=== PATIENT | female | born 1985 | race Caucasian/White ===

== ENCOUNTER 2016-11-13 10:57 | Day surgery (SDC) | payer OTHER ==
[2016-11-13] MEDS ORDERED: Lactated Ringer's 1,000 ML IV SCH (12:00)
[2016-11-13 12:56] LABS: #Lymphocytes 1.4 thou/uL (1.20-3.40); #Monocytes 0.5 thou/uL (0.11-0.59); #Neutrophils 7.1 thou/uL (1.40-6.50); %Basophils 0.2 % (0.0-1.0); %Eosinophils 0.4 % (0.0-10.0); %Lymphocytes 15.8 % (21.0-51.0); %Monocytes 5.1 % (0.0-10.0); Hematocrit 32.9 % (36.0-47.0); Mean Platelet Volume 8.2 fL (7.4-10.4); White Blood Cell (WBC) Count 9.1 thou/uL (4.8-10.8)
[2016-11-13 13:15] LABS: Bilirubin Negative (Negative); Blood, Urine Negative (Negative); Glucose, Urine (Dipstick) Negative (Negative); Ketone, Urine Negative (Negative); Nitrite Negative (Negative); Protein, Urine (Dipstick) 100 mg/dL (Neg-Trace); Urobilinogen 0.2 mg/dL (0.2-1.0)
[2016-11-13 13:16] LABS: Amnisure Test No Membranes Rupture (No Rupture)
[2016-11-13 13:21] LABS: Bacteria/HPF 1+ HPF (None Seen)
[2016-11-13 13:26] LABS: ALT (SGPT) 7 U/L (8-55); AST (SGOT) 10 U/L (5-34); Alkaline Phosphatase 106 U/L (40-150); Anion Gap 13 mmol/L (10-20); BUN (Urea Nitrogen) 6 mg/dL (7.0-18.7); Bilirubin, Total 0.4 mg/dL (0.2-1.2); Calc. Creatinine Clearance 0 mL/min (70-130); Calcium 9.3 mg/dL (7.8-10.44); Carbon Dioxide 22 mmol/L (22-29); Chloride 106 mmol/L (98-107); Estimated GFR-MDRD Greater than 90; Globulin 2.8 g/dL (2.4-3.5); Protein, Total 6.1 g/dL (6.0-8.3); Uric Acid 5.3 mg/dL (2.6-6.0)
[2016-11-13 13:32] LABS: RBC/HPF 0-3 HPF (0-3)
[2016-11-13 13:33] LABS: Hyaline Casts/LPF 0-3 HYALINE CAST LPF (0-3 Hyaline)
[2016-11-13] MEDS ORDERED: Ondansetron HCl/PF 4 MG/2 ML Vial ONE (13:34)
[2016-11-13] MEDS ORDERED: Ondansetron HCl/PF 4 MG/2 ML Vial IVP SCH (13:45)
--- NOTE | 2016-11-13 13:47 | ULT ---
BIOPHYSICAL PROFILE: INDICATIONS: Preeclampsia. COMPARISON: 10/29/2016 FINDINGS: There is a single live intrauterine gestation in the vertex presentation. The placenta is posterior in location without evidence of previa. CORINE measures 16 cm. heart rate measures 150 beats p er minute. The fetus received 2/2 for tone, 2/2 for breathing, 2/2 for movement, and 2/2 for the amniotic fluid level. The biophysical profile is 8/8. IMPRESSION: Biophysical profile 8/8. POS: JAZZMINE
[2016-11-13 17:09] VITALS: BMI 34.6
[2016-11-13] MEDS: Lactated Ringer's 1,000 ML IV SCH (17:37)
[2016-11-13] MEDS ORDERED: FLU VACC QS2017-18 36 mo. & older 0.5 ML SYRINGE IM ONE (18:00)
--- NOTE | 2016-11-13 21:06 | PDOC.LDPN ---
Labor & Delivery Progress Note - Subjective Subjective: comfortable, no concerns - Objective Vital signs reviewed and normal: yes General: NAD Uterine fundus: non tender Dilation: 4 Effacement: 50% Station: -2 FHT: category 1, variability present, absent or minimal variables Koppel contractions every: irregular. at times q3-5 min - Assessment (1) Pre-eclampsia Code(s): O14.90 - UNSPECIFIED PRE-ECLAMPSIA, UNSPECIFIED TRIMESTER Current Visit: Yes Status: Acute Qualifiers: Trimester: third trimester Qualified Code(s): O14.93 - Unspecified pre- eclampsia, third trimester -: Pt does not currently have severe symptoms, however uric acid is elevated. Continue to monitor over night and recheck cmp/cbc in am. Monitor BP over night.
[2016-11-14] MEDS: Ondansetron HCl/PF 4 MG/2 ML Vial IVP PRN ×2 (02:58→09:21)
[2016-11-14] MEDS: Lactated Ringer's 1,000 ML IV SCH (03:00)
[2016-11-14 05:33] LABS: #Eosinphils 0.1 thou/uL (0.0-0.7); #Lymphocytes 1.7 thou/uL (1.20-3.40); #Monocytes 0.7 thou/uL (0.11-0.59); #Neutrophils 6.5 thou/uL (1.40-6.50); %Basophils 0.1 % (0.0-1.0); %Eosinophils 1.2 % (0.0-10.0); %Lymphocytes 19.1 % (21.0-51.0); %Monocytes 7.4 % (0.0-10.0); Hematocrit 29.2 % (36.0-47.0); Mean Platelet Volume 8.1 fL (7.4-10.4); Red Blood Cell (RBC) Count 3.24 mill/uL (4.20-5.40)
[2016-11-14 05:53] LABS: ALT (SGPT) 7 U/L (8-55); AST (SGOT) 13 U/L (5-34); Alkaline Phosphatase 86 U/L (40-150); Anion Gap 12 mmol/L (10-20); BUN (Urea Nitrogen) 7 mg/dL (7.0-18.7); Bilirubin, Total 0.4 mg/dL (0.2-1.2); Calc. Creatinine Clearance 0 mL/min (70-130); Calcium 8.9 mg/dL (7.8-10.44); Carbon Dioxide 21 mmol/L (22-29); Chloride 105 mmol/L (98-107); Estimated GFR-MDRD Greater than 90; Globulin 2.8 g/dL (2.4-3.5); Protein, Total 5.5 g/dL (6.0-8.3)
[2016-11-14] MEDS ORDERED: Acetaminophen 325 MG TAB PO SCH (08:00)
--- NOTE | 2016-11-14 09:13 | PDOC.LDPN ---
Labor & Delivery Progress Note - Subjective Subjective: comfortable - Objective Vital signs reviewed and normal: yes General: NAD Uterine fundus: non tender SVE: @[address] Milian and Dr. Le Dilation: 4 Effacement: 50% Station: -3 FHT: category 1, variability present - Assessment (1) Pre-eclampsia Code(s): O14.90 - UNSPECIFIED PRE-ECLAMPSIA, UNSPECIFIED TRIMESTER Current Visit: Yes Status: Acute Qualifiers: Trimester: third trimester Qualified Code(s): O14.93 - Unspecified pre- eclampsia, third trimester Comment: Pre-eclampsia without severe features diagnosed by SBP >140 and Protein /creatinine ratio > 0.3 LFT's, creatinine, platelets WNL -will get 24 hour protein -will continue to monitor BP's Still having nausea and vomiting, was able to tolerate PO overnight, but not this AM. Zofran prn nausea. -Scheduled for induction at 37 WGA. Plan: continue plan of care <Do Milian - Last Filed: 11/14/16 09:20> Attending Addendum - Attending Addendum I personally evaluated the patient and discussed the management with Dr. Milian I agree with the History, Examination, Assessment and Plan documented above with any addition or exceptions noted below- Patient with some nausea this morning but wants to try and eat. Had some ctx last night and had some cervical change but no further change and ctx stopped. Afebrile BP overnight 120s/80s. A /P: Pre-eclampsia without severe features- BP stabilized; continue 24 hour urine. 2) labor- no further cervical change; continue to monitor. Possible d/c later today. <Sumaya Franco - Last Filed: 11/14/16 09:35>
[2016-11-14] MEDS ORDERED: Metoclopramide HCl 10 MG/2 ML VIAL IVP PRN (10:47)
[2016-11-14] MEDS ORDERED: Acetaminophen 500 MG TAB PO PRN (14:13)
[2016-11-14 16:12] LABS: Collection Duration 24 hrs
[2016-11-14 17:23] LABS: Protein - 24 Hr 392 mg/24 hr (Less than 300); Protein, Urine 27 mg/dL (1-14)
[2016-11-14 17:28] VITALS: BP 135/81; TEMP 98.2
--- NOTE | 2016-11-15 07:51 | DIS-2 ---
DATE OF ADMISSION: 11/13/2016 DATE OF DISCHARGE: 11/14/2016 RESIDENT: Do Milian MD ADMITTING ATTENDING: Sumaya Franco MD DISCHARGE ATTENDING: Sumaya Franco MD CONSULTS: None. PROCEDURES: None. PRIMARY DIAGNOSES: 1. Preeclampsia without severe features. 2. Intractable nausea, vomiting in . 3. Group B streptococcus positive. DISCHARGE MEDICATIONS: 1. Zofran 4 mg p.o. every 6 hours p.r.n. 2. vitamins 1 tablet p.o. daily. DISCONTINUED MEDICATIONS: None. HISTORY OF PRESENT ILLNESS AND HOSPITAL COURSE: This is a 31-year-old G4, P3 at 36.0 weeks gestatio nal age, who presented to the clinic on 11/13/2016, complaining of headache, nausea, vomiting, and r eported that at home, she checked her blood pressures, they were systolic in the 140s. She was sent over to the hospital and admitted here for observation. We checked her blood pressure, it ranged a round 140s/80s and then dropped down to the 120s to 110s/70s. Her platelets were normal. Her creat inine and LFTs were normal. We checked a urine protein to creatinine ratio of 0.5 and she had a uri c acid of 5.3. She also reported that she felt like her panties were wetter than they normally were . She was not sure if she had loss of fluid or if it was urine. We did an AmniSure and it was nega tive. We monitored her for several hours and monitored the heart tones, were category 1, and her blood pressures continued to range from 120s to 140s systolic. We diagnosed her with preeclamps ia without severe features. She had known proteinuria earlier in her , but without the rossana vated blood pressures. She also at this time had significant nausea and vomiting and having difficu lty keeping her food down. We gave her Zofran and this helped. She also received a bolus of lactat ed Ringer's and then some maintenance fluids, and after about 12 hours, she was able to tolerate p.o . and her headache improved after Tylenol. We scheduled her for induction on , 11/21/2016. Her 24-hour urine protein, which is 392. DISPOSITION: Stable. DISCHARGE INSTRUCTIONS: 1. Location: Home. 2. Diet: Regular. 3. Activity: As tolerated. 4. Follow up with Dr. Frazier within 3 to 4 days.
== END 2016-11-14 18:01 | disposition home or self-care (01) ==
LOC: L&D/OP 10:57 → L&D 18:14 → UNDOADMOB 18:14 → 3SE 11-14 10:38 → L&D 11-14 10:38 → UNDODISOB 11-14 18:01 → L&D/OP 11-14 18:01
PROVIDERS: ATTEND Family Medicine
DX: O14.93 Unspecified pre-eclampsia, third trimester (principal); O98.813 Other maternal infectious and parasitic diseases complicating pregnancy, third trimester; B95.1 Streptococcus, group B, as the cause of diseases classified elsewhere; K21.9 Gastro-esophageal reflux disease without esophagitis; Z3A.35 35 weeks gestation of pregnancy; Z79.899 Other long term (current) drug therapy; Z91.048 Other nonmedicinal substance allergy status; Z87.891 Personal history of nicotine dependence; Z87.440 Personal history of urinary (tract) infections
CPT/HCPCS: 36415; 59025; 76819; 80053; 81001; 82570; 84112; 84156; 84550; 85025; 86780; 87077; 87086; 87389; J2405

== ENCOUNTER 2016-11-18 13:40 | Day surgery (SDC) | payer OTHER ==
[2016-11-18 14:27] VITALS: BMI 33.7
[2016-11-18] MEDS ORDERED: Lactated Ringer's 1,000 ML IV SCH (16:00)
[2016-11-18 16:50] LABS: #Basophils 0.1 thou/uL (0.0-0.2); #Lymphocytes 1.4 thou/uL (1.20-3.40); #Monocytes 0.5 thou/uL (0.11-0.59); #Neutrophils 7.2 thou/uL (1.40-6.50); %Basophils 0.7 % (0.0-1.0); %Eosinophils 0.4 % (0.0-10.0); %Lymphocytes 15.2 % (21.0-51.0); %Monocytes 5.7 % (0.0-10.0); Hematocrit 34.2 % (36.0-47.0); Mean Platelet Volume 8.3 fL (7.4-10.4); Red Blood Cell (RBC) Count 3.83 mill/uL (4.20-5.40); White Blood Cell (WBC) Count 9.2 thou/uL (4.8-10.8)
--- NOTE | 2016-11-18 17:03 | PDOC.LDHP ---
Labor and Delivery H&P Chief complaint: abdominal pain, other (scotomas) HPI: Complaining of RUQ pain and scotomas, no increase over baseline symptoms. Also notes increased vaginal discharge. Current gestational age (weeks): 36 Grav: 4 Para: 3 OB History Details: Preeclampsia this . Current complications: preeclampsia without severe features Abnormal US findings: No Current medications: pre-amanda vitamins Previous surgical history: none Allergies/Adverse Reactions: Allergies Allergy/AdvReac Type Severity Reaction Status Date / Time adhesive Allergy Mild Rash Verified 11/18/16 14:25 Social history: none - Physical Exam Vital signs reviewed and normal: yes (intial BP) General: NAD Heart: RRR Lungs: nonlabored breathing Abdomen: other (mild diffuse abdominal pain on palpation, no guarding or rebound ) Extremeties: trace edema FHT: category 1 - Vaginal Exam cm dilated: 3 Effacement: 75% Station: -2 - OB Labs RH: negative HIV: negative RPR: negative HEPSAg: negative 1 hour GCT: negative GBS: positive Urine drug screen: negative Additional Labs: uric acid and CMP pending - Assessment known preeclampsia, currently reevaluating possibility of severe features. If nothing new noted on lab workup or BPP, will continue plan for induction on at 37 weeks. If concern for severe features, will give steroid shot and induce tonight.
[2016-11-18 17:05] LABS: Bilirubin Negative (Negative); Blood, Urine Negative (Negative); Glucose, Urine (Dipstick) Negative (Negative); Ketone, Urine Negative (Negative); Nitrite Negative (Negative); Protein, Urine (Dipstick) Negative (Neg-Trace); Urobilinogen 0.2 mg/dL (0.2-1.0)
[2016-11-18 17:21] LABS: ALT (SGPT) 9 U/L (8-55); AST (SGOT) 13 U/L (5-34); Alkaline Phosphatase 113 U/L (40-150); Anion Gap 14 mmol/L (10-20); BUN (Urea Nitrogen) 6 mg/dL (7.0-18.7); Bilirubin, Total 0.5 mg/dL (0.2-1.2); Calc. Creatinine Clearance 238 mL/min (70-130); Calcium 9.5 mg/dL (7.8-10.44); Carbon Dioxide 22 mmol/L (22-29); Chloride 104 mmol/L (98-107); Estimated GFR-MDRD Greater than 90; Globulin 2.9 g/dL (2.4-3.5); Protein, Total 6.2 g/dL (6.0-8.3)
[2016-11-18 17:42] LABS: Amnisure Test No Membranes Rupture (No Rupture)
[2016-11-18 18:18] VITALS: BP 141/87; TEMP 98.2
--- NOTE | 2016-11-18 18:54 | ULT ---
BIOPHYSICAL PROFILE: History: Preclampsia. FINDINGS: There is a single live intrauterine gestation in vertex presentation. Placenta is posterior in locat ion without evidence of previa. CORINE is noted at 15.3 cm. The fetus is 2/2 for tone, 2/2 for fe moustapha breathing, 2/2 for movements and 2/2 for amniotic fluid level. Cardiac activity is documen devan at 131 beats/minute. IMPRESSION: Biophysical profile of 09/17. POS: BH
--- NOTE | 2016-11-18 19:39 | PDOC.EVN ---
Event Note - Event Note Event Note: Patient labs wnl. Patient with known pre-eclampsia this , although today does not meet criteria for preeclampsia with negative protienuria. Will d /c home with IOL scheduled for 11/22/16.
[2016-11-18] MEDS ORDERED: FLU VACC QS2017-18 36 mo. & older 0.5 ML SYRINGE IM ONE (21:00)
== END 2016-11-18 20:27 | disposition home or self-care (01) ==
LOC: L&D/OP 13:40
PROVIDERS: ATTEND Family Medicine
DX: O99.89 Other specified diseases and conditions complicating pregnancy, childbirth and the puerperium (principal); R10.11 Right upper quadrant pain; N89.8 Other specified noninflammatory disorders of vagina; O14.93 Unspecified pre-eclampsia, third trimester; Z3A.36 36 weeks gestation of pregnancy; Z79.899 Other long term (current) drug therapy; Z91.048 Other nonmedicinal substance allergy status; Z87.891 Personal history of nicotine dependence
CPT/HCPCS: 76819; 80053; 81003; 82570; 84112; 84156; 85025; 87480; 87510; 87660

== ENCOUNTER 2016-11-22 05:12 | Inpatient (IN) | payer OTHER ==
[2016-11-22 06:20] VITALS: BMI 35.6
[2016-11-22] MEDS ORDERED: Sodium Chloride 0.9% 100 ML ONE (07:01)
[2016-11-22] MEDS ORDERED: Penicillin G Potassium 5 MILL.UNITS VIAL ONE (07:01)
[2016-11-22] MEDS ORDERED: Ibuprofen 800 MG TAB PO PRN (07:41)
[2016-11-22] MEDS ORDERED: LR / Pitocin 40 units/1000 ml 1,000 ML IV PRN (07:41)
[2016-11-22] MEDS ORDERED: Promethazine HCl 25 MG/ML VIAL IM PRN ×2 (07:41→12:12)
[2016-11-22] MEDS ORDERED: Lidocaine 1% (PF) 30 ML VIAL SC PRN (07:41)
[2016-11-22] MEDS ORDERED: Docusate 100 MG CAP PO PRN (07:41)
[2016-11-22] MEDS ORDERED: Ondansetron HCl/PF 4 MG/2 ML Vial IVP PRN ×3 (07:41→18:01)
[2016-11-22] MEDS ORDERED: Penicillin G Potassium 5 MILL.UNITS in Sodium Chloride 0.9% 100 ML IVPB SCH (07:45)
[2016-11-22] MEDS ORDERED: LR 500 ML/Oxytocin 10 units 500 ML IV SCH (08:15)
[2016-11-22 08:17] LABS: Hematocrit 32.8 % (36.0-47.0); Mean Platelet Volume 8.7 fL (7.4-10.4); Red Blood Cell (RBC) Count 3.68 mill/uL (4.20-5.40); White Blood Cell (WBC) Count 9.1 thou/uL (4.8-10.8)
[2016-11-22] MEDS: Lactated Ringer's 1,000 ML IV SCH ×2 (08:34→10:54)
[2016-11-22] MEDS ORDERED: Fentanyl 4 mcg/Marc 0.1% Cadd 100 ML ONE (10:33)
[2016-11-22 10:56] LABS: ALT (SGPT) 10 U/L (8-55); AST (SGOT) 10 U/L (5-34); Alkaline Phosphatase 112 U/L (40-150); Anion Gap 15 mmol/L (10-20); BUN (Urea Nitrogen) 9 mg/dL (7.0-18.7); Bilirubin, Total 0.6 mg/dL (0.2-1.2); Calc. Creatinine Clearance 225 mL/min (70-130); Calcium 9.2 mg/dL (7.8-10.44); Carbon Dioxide 22 mmol/L (22-29); Chloride 105 mmol/L (98-107); Estimated GFR-MDRD Greater than 90; Globulin 3.2 g/dL (2.4-3.5); Protein, Total 6.5 g/dL (6.0-8.3)
[2016-11-22] MEDS: Penicillin G 2.5 MILL.units 2.5 MILL.UNITS in Premix Bag 1 BAG IVPB SCH ×2 (10:56→15:26)
[2016-11-22] MEDS ORDERED: Eucerin (Mineral Oil/Petrolatum,White) 30 gm Jar TOP PRN (12:12)
[2016-11-22] MEDS ORDERED: Acetaminophen 325 MG TAB PO PRN ×2 (12:12→18:40)
[2016-11-22] MEDS ORDERED: diphenhydrAMINE HCl 50 MG/ML 1 ML VIAL IVP PRN (12:12)
[2016-11-22] MEDS ORDERED: Lactated Ringer's 500 ML IV PRN (12:12)
[2016-11-22] MEDS ORDERED: Naloxone HCl 0.4 mg/ml Vial IVP PRN ×2 (12:12)
[2016-11-22] MEDS ORDERED: ePHEDrine/0.9% NaCl/PF SYRINGE 50 mg/10 ml SLOW IVP PRN (12:12)
[2016-11-22] MEDS ORDERED: Communication Order-Pharmacy FS SCH (12:15)
[2016-11-22] MEDS ORDERED: Fentanyl 4mcg/Marcaine 0.1% Cassette 100 ML EPIDURAL SCH (12:15)
--- NOTE | 2016-11-22 12:52 | PDOC.EVN ---
Event Note - Event Note Event Note: S: Patient comfortable with epidural in place. No complaints at this time. O: VS: BP 133/79, HR 120, Temp 98/4, R 16 SBP average 120's. Gen: Afebrile, AOx4. PE: unchanged. SVE by Dr. Frazier /+1 FHT's 140's, + Accels, no decels, mod variability. Bruce strip CTX: Q3min. AROM @ 12:28. Clear fluid. Med: Pit @ 8, Epidural in place. A/P: 1) TIUP - 31 yo @ 37w0d. Continue routine L&D care. 2) GBS positive - s/p PCN x2 3) Pre-eclampsia - CMP WNL. BP controlled.
--- NOTE | 2016-11-22 16:22 | PDOC.OPDEL ---
OB Operative/Delivery Note Delivery Dr/Surgeon: Freddie Pre-Delivery Diagnosis: medically indicated induction (pitocin induction at 37 weeks for preeclampsia without severe features) Procedure/Post Delivery Dx: spontaneous vaginal delivery Weeks gestation: 37 Anesthesia: epidural - Additional Findings/Plan Placenta delivered: spontaneous Repaired Obstetrical Laceration: none Estimated blood loss: 200 mL
[2016-11-22] MEDS ORDERED: LR / Pitocin 40 units/1000 ml 1,000 ML IV SCH (18:01)
[2016-11-22] MEDS ORDERED: Milk Of Magnesia 30 ML UDCUP PO PRN (18:01)
[2016-11-22] MEDS ORDERED: Bisacodyl 10 MG SUPP PR PRN (18:01)
[2016-11-22] MEDS ORDERED: Lanolin Ointment 7 GM TUBE TOP PRN (18:01)
[2016-11-22] MEDS ORDERED: diphenhydrAMINE HCl 25 MG CAP PO PRN (18:01)
[2016-11-22] MEDS ORDERED: Benzocaine/Menthol 20-0.5% 60 ML CAN TOP PRN (18:01)
[2016-11-22] MEDS ORDERED: Ferrous Sulfate 325 MG TAB PO SCH (18:15)
[2016-11-22] MEDS ORDERED: Adacel (T-DAP) 0.5 ML VIAL IM ONE (18:30)
[2016-11-22] MEDS: Ibuprofen 800 MG TAB PO SCH (18:51)
[2016-11-22] MEDS ORDERED: Bupivacaine 0.25% HCL 30 ML VIAL ONE (19:42)
[2016-11-22] MEDS: HYDROcodone/Acetaminophen 5/325 mg Tablet PO PRN ×2 (19:50→23:29)
[2016-11-22] MEDS: Docusate (Surfak) 240 MG CAP PO SCH (19:50)
[2016-11-22] MEDS ORDERED: FLU VACC QS2017-18 36 mo. & older 0.5 ML SYRINGE IM ONE (21:00)
[2016-11-23 04:28] LABS: Hematocrit 30.6 % (36.0-47.0); Mean Platelet Volume 8.4 fL (7.4-10.4); Red Blood Cell (RBC) Count 3.41 mill/uL (4.20-5.40); White Blood Cell (WBC) Count 10.5 thou/uL (4.8-10.8)
[2016-11-23] MEDS: Ibuprofen 800 MG TAB PO SCH ×3 (06:23→21:19)
[2016-11-23] MEDS: HYDROcodone/Acetaminophen 5/325 mg Tablet PO PRN ×4 (08:27→21:18)
[2016-11-23] MEDS: Prenatal Vitamin 1 TAB PO SCH (08:27)
[2016-11-23] MEDS: Ferrous Sulfate 325 MG TAB PO SCH ×2 (08:28→16:44)
[2016-11-23] MEDS: Docusate (Surfak) 240 MG CAP PO SCH ×2 (08:28→21:18)
--- NOTE | 2016-11-23 09:05 | PDOC.PP ---
Post Progress Note Post Day #: 1 PO intake tolerated: yes Flatus: yes Ambulation: yes Vital Signs (12 hours) Temp Pulse Resp BP Pulse Ox 11/23/16 07:35 97.9 F 81 20 11/23/16 07:30 98 F 90 20 134/85 97 11/23/16 03:50 97.9 F 81 20 11/23/16 00:20 97.9 F 81 20 11/22/16 23:35 98.6 F 80 18 150/86 H Weight Weight 94.347 kg - Physical Examination General: NAD Cardiovascular: no m/r/g, RRR Respiratory: clear to ausculation bilateral Abdominal: + bowel sounds, no distention, appropriately TTP Skin: no rash Neurological: no gross focal deficits Psychiatric: normal affect Result Diagrams: 11/23/16 04:10 11/22/16 06:45 Additional Labs: Post Labs Hep Bs Antigen Non-Reactive S/CO (NonReactive) 11/22/16 06:45 (1) Intrauterine Code(s): Z34.90 - ENCNTR FOR SUPRVSN OF NORMAL , UNSP, UNSP TRIMESTER Status: Acute (2) Pre-eclampsia Code(s): O14.90 - UNSPECIFIED PRE-ECLAMPSIA, UNSPECIFIED TRIMESTER Status: Acute - Assessment/Plan continue to monitor pressures, pressures thus far remain less than 160/110 no ruq pain labs wnl no scotoma no headache possible discharge today w/ close op f/u pending maintained bp <160/110 pain adequately controlled at this time urinating and passing flatus <Mark Grajeda - Last Filed: 11/23/16 09:03> Vital Signs (12 hours) Temp Pulse Resp BP Pulse Ox 11/23/16 07:35 97.9 F 81 20 11/23/16 07:30 98 F 90 20 134/85 97 11/23/16 03:50 97.9 F 81 20 11/23/16 00:20 97.9 F 81 20 11/22/16 23:35 98.6 F 80 18 150/86 H Weight Weight 94.347 kg Result Diagrams: 11/23/16 04:10 11/22/16 06:45 Additional Labs: Post Labs Hep Bs Antigen Non-Reactive S/CO (NonReactive) 11/22/16 06:45 <Michaela Frazier - Last Filed: 11/23/16 11:20> Attending Addendum - Attending Addendum I personally evaluated the patient and discussed the management with Dr. Grajeda on 11/23/16. I agree with the History, Examination, Assessment and Plan documented above with any addition or exceptions noted below. Doing well, minimal pain and lochia. BP elevated overnight with history of preeclampsia without severe features this . No need for Mag at this time. Monitor overnight, if remains stable overnight will discharge home tomorrow. <Michaela Frazier - Last Filed: 11/23/16 11:20>
[2016-11-24] MEDS: HYDROcodone/Acetaminophen 5/325 mg Tablet PO PRN ×2 (06:01→09:35)
[2016-11-24] MEDS: Ibuprofen 800 MG TAB PO SCH (06:01)
[2016-11-24 08:09] VITALS: BP 123/62; TEMP 98.6
--- NOTE | 2016-11-24 08:11 | PDOC.PP ---
Post Progress Note Post Day #: 2 PO intake tolerated: yes Flatus: yes Ambulation: yes Weight Weight 94.347 kg - Physical Examination General: NAD Cardiovascular: no m/r/g, RRR Respiratory: clear to ausculation bilateral Abdominal: + bowel sounds, lochia, no distention, appropriately TTP Fundus firm & at: umbilicus Extremities: negative homans (B) Neurological: no gross focal deficits Psychiatric: normal affect Result Diagrams: 11/23/16 04:10 11/22/16 06:45 Additional Labs: Post Labs Hep Bs Antigen Non-Reactive S/CO (NonReactive) 11/22/16 06:45 (1) Intrauterine Code(s): Z34.90 - ENCNTR FOR SUPRVSN OF NORMAL , UNSP, UNSP TRIMESTER Status: Acute (2) Pre-eclampsia Code(s): O14.90 - UNSPECIFIED PRE-ECLAMPSIA, UNSPECIFIED TRIMESTER Status: Acute - Assessment/Plan pressures remained stable throughout the day. scant lochia mild cramping with breast feeding but pain well controlled otherwise tolerating po, ambulating, small BM, urinating w/o problems d/c home today with op f/u with PCP <Mark Grajeda - Last Filed: 11/24/16 08:08> Vital Signs (12 hours) Temp Pulse Resp BP 11/24/16 08:00 98.6 F 68 20 123/62 Weight Weight 94.347 kg Result Diagrams: 11/23/16 04:10 11/22/16 06:45 Additional Labs: Post Labs Hep Bs Antigen Non-Reactive S/CO (NonReactive) 11/22/16 06:45 <Michaela Frazier - Last Filed: 11/24/16 09:43> Attending Addendum - Attending Addendum I personally evaluated the patient and discussed the management with Dr. Grajeda on 11/24/16. I agree with the History, Examination, Assessment and Plan documented above with any addition or exceptions noted below. Doing well, BPs controlled. Discharge home today. <Michaela Frazier - Last Filed: 11/24/16 09:43>
[2016-11-24] MEDS: Prenatal Vitamin 1 TAB PO SCH (09:34)
[2016-11-24] MEDS: Docusate (Surfak) 240 MG CAP PO SCH (09:34)
[2016-11-24] MEDS: Ferrous Sulfate 325 MG TAB PO SCH (09:34)
== END 2016-11-24 12:46 | disposition home or self-care (01) | DRG 775 ==
LOC: L&D 05:12 → 3SE 17:57
PROVIDERS: ADMIT Family Medicine; ATTEND Family Medicine
PROC: 10E0XZZ Delivery of Products of Conception, External Approach (ICD-10-PCS; principal; 2016-11-22)
PROC: 3E0P3VZ Introduction of Hormone into Female Reproductive, Percutaneous Approach (ICD-10-PCS; 2016-11-22)
PROC: 10907ZC Drainage of Amniotic Fluid, Therapeutic from Products of Conception, Via Natural or Artificial Opening (ICD-10-PCS; 2016-11-22)
DX: O14.94 Unspecified pre-eclampsia, complicating childbirth (principal); O99.824 Streptococcus B carrier state complicating childbirth; Z3A.37 37 weeks gestation of pregnancy; Z37.0 Single live birth
CPT/HCPCS: 36415; 80053; 85027; 86780; 87340; 87389; J2001; J2405; J2540; J7050; J7120; S0020

== ENCOUNTER 2019-03-17 16:17 | Emergency (ER) | payer OTHER ==
--- NOTE | 2019-03-17 17:24 | RAD ---
Exam: Chest one view HISTORY: patient. Chest pressure Comparison: None FINDINGS: Cardiac silhouette: Normal Aorta: Unremarkable Pulmonary vessels: Normal Costophrenic angles: Clear LUNGS: No masses or consolidation. Pneumothorax: None Osseous abnormalities: None IMPRESSION: No acute cardiopulmonary process.
[2019-03-17 18:01] LABS: #Eosinphils 0.1 thou/uL (0.0-0.7); #Lymphocytes 1.4 thou/uL (1.20-3.40); #Monocytes 0.5 thou/uL (0.11-0.59); #Neutrophils 6.7 thou/uL (1.40-6.50); %Basophils 0.2 % (0.0-1.0); %Eosinophils 0.7 % (0.0-10.0); %Lymphocytes 15.8 % (21.0-51.0); %Monocytes 5.6 % (0.0-10.0); %Neutrophils 77.8 % (42.0-75.0); Hemoglobin 11.4 g/dL (12.0-16.0); Mean Corpuscular HGB CONC 34.3 g/dL (32.0-36.0); Mean Corpuscular Hemoglobin 30.3 pg (27.0-31.0); Mean Corpuscular Volume 88.3 fL (78.0-98.0); Platelet Count 204 thou/uL (130-400); RBC Distribution Width 11.5 % (11.5-14.5); Red Blood Cell (RBC) Count 3.77 mill/uL (4.20-5.40); White Blood Cell (WBC) Count 8.7 thou/uL (4.8-10.8)
[2019-03-17 18:20] LABS: ALT (SGPT) 8 U/L (8-55); AST (SGOT) 10 U/L (5-34); Albumin 3.4 g/dL (3.5-5.0); Alkaline Phosphatase 66 U/L (40-110); Anion Gap 9 mmol/L (10-20); BUN (Urea Nitrogen) 7 mg/dL (7.0-18.7); Bilirubin, Total 0.3 mg/dL (0.2-1.2); Calc. Creatinine Clearance 0 mL/min (70-130); Calcium 8.7 mg/dL (7.8-10.44); Carbon Dioxide 25 mmol/L (22-29); Chloride 107 mmol/L (98-107); Estimated GFR-MDRD Greater than 90; Globulin 2.6 g/dL (2.4-3.5); Glucose 96 mg/dL (70-105); Potassium 3.6 mmol/L (3.5-5.1); Sodium 137 mmol/L (136-145)
== END 2019-03-17 18:37 | disposition home or self-care (01) ==
LOC: ERS 16:17 → L&D/OP 16:17 → EDSTATUS 16:31 → ERS 18:37
DX: O98.512 Other viral diseases complicating pregnancy, second trimester (principal); B34.9 Viral infection, unspecified; O99.412 Diseases of the circulatory system complicating pregnancy, second trimester; R07.81 Pleurodynia; Z3A.27 27 weeks gestation of pregnancy
CPT/HCPCS: 36415; 71045; 80053; 84484; 85025; 87804; 93005

== ENCOUNTER 2019-04-04 22:13 | Day surgery (SDC) | payer OTHER ==
--- NOTE | 2019-04-04 23:19 | PDOC.FPROB ---
FMR OB H&P: HPI - History of Present Illness Chief Complaint: Vaginal spotting Indentification: 33 yo History of Present Illness: Delia is a 33yo who presents to L&D for evaluation of vaginal spotting. She states that she feels she lost her mucus plug yesterday. Today after urinating she noted 5-6 specks (less than pea sized) of blood on the tissue. There were fewer specks on the second wipe and then none thereafter. She has never experienced spotting in her other pregnancies and therefore decided to come in for evaluation. She has a history of pre-e with all of her pregnancies, however so far her blood pressures during this have been normal thus far. She complains of left sided pain when urinating and she perceives labial swelling. 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 - Family History Family History: HTN, Lung cancer, HLD, DM FMR OB H&P: Medications - Current Home Medications: Medication Instructions Recorded Confirmed Type Vit,Calc76/Iron/Folic 1 tablet PO DAILY 07/18/12 04/04/19 History [Prenatabs Rx Tablet] Allergies/Adverse Reactions: Allergies Allergy/AdvReac Type Severity Reaction Status Date / Time adhesive Allergy Mild Rash Verified 11/18/16 14:25 FMR OB H&P: ROS - Review of Systems General: denies: fever/chills, weight/appetite/sleep changes, night sweats, fatigue Eyes: denies: eye pain, vision changes ENT: denies: nasal congestion, rhinorrhea, sore throat Cardiovascular: denies: chest pain, palpitation, edema Respiratory: denies: cough, congestion, shortness of breath Gastrointestinal: denies: abdominal pain, bloating, cramping, nausea, vomiting, diarrhea, constipation Genitourinary (Female): reports: dysuria, hematuria, vaginal discharge, vaginal pain, vaginal bleeding. denies: incontinence, vaginal mass/sore, contractions, vaginal pressure Musculoskeletal: denies: pain, stiffness, tenderness Neurologic: denies: numbness, syncope, seizures Integumentary: denies: rash, lesions FMR OB H&P: Vital Signs - Maternal Vital signs: 126/58, 98.5 - Heart Tones Baseline: 140 Variability: moderate Acceleration: present Deceleration: absent [place] contractions every: None FMR OB H&P: Physical Exam - Physical Exam General: NAD, awake, alert and oriented HEENT: normocephalic and atraumatic, PERRLA, EOMI, MMM, conjunctiva clear, grossly normal vision, grossly normal hearing Neck: FROM, trachea midline Breast: symmetric Heart: RRR, normal S1/S2, no murmurs/rubs/gallops General: CTAB, no respiratory distress, good air movement Abdomen: soft, gravid, non-tender Musculoskeletal: normal gait and station, pulses present Neurological: cranial nerves II through XII intact Skin: no rash, good tugor Lymphatic: no unusual bruising or bleeding, no purpura, no petechia Psychiatric: intact recent and remote memory, good judgement and insight, normal mood and affect - Pelvic Exam Vulva: normal hair distribution Deviation from normal: Sterile Spec exam: fair amount of white/yellow discharge. VP3 collected Cervix: no masses, no lesions, no blood FMR OB H&P: A/P - Problem List (1) History of pre-eclampsia Status: Acute Code(s): Z87.59 - PERSONAL HISTORY OF COMP OF PREG, CHLDBRTH AND THE PUERP (2) Intrauterine Status: Acute Code(s): Z34.90 - ENCNTR FOR SUPRVSN OF NORMAL , UNSP, UNSP TRIMESTER Disposition: sIUP @ 30.0 wks gestation - Reassuring NST w/ good accelerations and variability. No contractions noted. Vaginal spotting - Sterile spec exam unremarkable for cervical changes. - Thick white/yellow discharge noted. VP3 collected. UA / UC sent. - US showed anterior placenta, does not appear to be low lying. Discussion: Date/Time: 04/04/19 9008 This H&P was discussed with Dr. Crawford and Dr. Lopez who agree with the above documentation and plan. Addendum - Attending - Attending Attestation Date/Time: 04/05/19 3696 I personally evaluated the patient and discussed the management with Dr. Bernard I agree with the History, Examination, Assessment and Plan documented above with any addition or exceptions noted below. 33 yo female at 30.0 wks here for spotting episode around 10 pm. Patient denies contractions, cramping, LOF, or change in urination or discharge. +FM. No trauma. No recent intercourse within the last 24 hours. Was at constitution party all day today. recently diagnosed with genital yeast infection from antibiotic course. Patient notes irritation. Spec exam without blood in vault and at os. No significant change in discharge. Os no greater than 1 cm. Reactive tracing. No contractions or irritability. CORINE WNL on bedside. Anterior fundal placenta. Infection swabs taken. UA WNL for gestation. Culture pending. Will send topical azole due to exposure. Will call with lab results. Follow up with PCP later this week. Continue kick counts. Tolu
[2019-04-05] MEDS ORDERED: hydrALAZINE 20 MG/ML VIAL SLOW IVP PRN (00:23)
[2019-04-05 00:36] LABS: Bacteria/HPF None Seen HPF (None Seen); Bilirubin Negative (Negative); Blood, Urine Negative (Negative); Clarity Clear (Clear); Glucose, Urine (Dipstick) 50 mg/dL (Negative); Leukocyte 75 Leu/uL (Negative); Nitrite Negative (Negative); Protein, Urine (Dipstick) 100 mg/dL (Neg-Trace); RBC/HPF 0-3 HPF (0-3); Urobilinogen Normal mg/dL (Less than 2)
--- NOTE | 2019-04-05 00:49 | PDOC.BPN ---
- Brief Progress Note UA results are Laboratory Tests 04/05/19 00:08 Urine Color Yellow Urine Clarity Clear Urine pH 6.0 Ur Specific [place] 1.035 Urine Protein 100 A Urine Glucose (UA) 50 Urine Ketones Trace A Urine Blood Negative Urine Nitrite Negative Urine Bilirubin Negative Urine Urobilinogen Normal Ur Leukocyte Esterase 75 A Urine RBC 0-3 Urine WBC 11-20 A Ur Squamous Epith Cells 11-20 A Urine Bacteria None Seen Will send for urine culture and follow up. Will follow up on VP3 swab. Patient reassured and given return precautions. Patient discharged home to follow up with OB provider.
== END 2019-04-05 01:15 | disposition home or self-care (01) ==
LOC: L&D/OP 22:13
PROVIDERS: ATTEND Student in an Organized Health Care Education/Training Program
DX: O26.853 Spotting complicating pregnancy, third trimester (principal); Z3A.30 30 weeks gestation of pregnancy; Z91.048 Other nonmedicinal substance allergy status
CPT/HCPCS: 76815; 81001; 87086; 87480; 87510; 87660; 99284

== ENCOUNTER 2019-05-18 17:57 | Inpatient (IN) | payer OTHER ==
[~2019-05-18 17:57] MED LIST: Bupivacaine 0.25% HCL 30 ML VIAL ONE
[2019-05-18 18:21] VITALS: BMI 35.5
[2019-05-18] MEDS ORDERED: hydrALAZINE 20 MG/ML VIAL SLOW IVP PRN (18:32)
--- NOTE | 2019-05-18 18:59 | PDOC.FPROB ---
Addendum entered and electronically signed by Heidi Bennett MD 05/18/19 23:37 : Append to OB history: 4 , all term and all >37 weeks after ECW chart review Original Note: FMR OB H&P: HPI - History of Present Illness Chief Complaint: Non reassuring BPP, preE r/o Indentification: at 36.2 here for preE workup, dec FM History of Present Illness: 33 yo at 36.2wks sent over from clinic for preE work up and non reassuring testing. Per PCP her FHT showed tachycardia in the 170s and bPP was 4/8. Patient states her home BPs have been SBP 150s for the past few weeks with HAs somewhat resolved with tylenol. Her last two pregnancies were complicated by preE with severe features requiring induction at 34 weeks. She denies VB/VD/LOF but reports inc. pelvic pressure. Endorses FM. Denies vision changes, chest pain, RUQ pain, lower leg swelling. Primary Care Physician: Dr. 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 MARINE STEWARD History: Denies - Surgical History Sx History: Denies - Social History Social History: Denies TAD - Family History Family History: FOB with HTN PGF with HTN FMR OB H&P: Medications - Current Home Medications: Medication Instructions Recorded Confirmed Type Vit,Calc76/Iron/Folic 1 tablet PO DAILY 07/18/12 05/18/19 History [Prenatabs Rx Tablet] Allergies/Adverse Reactions: Allergies Allergy/AdvReac Type Severity Reaction Status Date / Time adhesive Allergy Mild Rash Verified 05/02/19 04:57 FMR OB H&P: ROS - Review of Systems General: denies: fever/chills, weight/appetite/sleep changes Eyes: denies: vision changes, scotomas, floaters ENT: denies: rhinorrhea, frequent nose bleed, sinus pain/pressure Cardiovascular: denies: chest pain, edema Gastrointestinal: denies: abdominal pain, indigestion, nausea, vomiting Genitourinary (Female): reports: vaginal pressure. denies: vaginal discharge, vaginal pain, vaginal bleeding, contractions Neurologic: reports: headache. denies: seizures, weakness Integumentary: denies: rash, lesions Breast: denies: skin changes Psychological: denies: depression, anxiety FMR OB H&P: Physical Exam - Physical Exam General: awake, alert and oriented HEENT: normocephalic and atraumatic, EOMI, MMM, conjunctiva clear Neck: supple, FROM, trachea midline Heart: RRR, normal S1/S2 General: CTAB, no respiratory distress, good air movement Abdomen: soft, gravid Musculoskeletal: pulses present, FROM in all four extremities Skin: no rash, good tugor, capillary refill <2 seconds Lymphatic: no unusual bruising or bleeding, no purpura Psychiatric: intact recent and remote memory, good judgement and insight FMR OB H&P: A/P Disposition: 33 yo at 36.2 weeks here for preE work up, non reassuring APT 1. sIUP at 36.2 wga, preE workup -Hx of preE with 2 PTB at 34 weeks -Will monitor BPs -FHT monitoring -Repeat BPP, growth & preE labs -Symptom monitoring -GBS swab -Will check cervix 2. Grand multip 3. Anemia of -Continue PO iron -PNV Dispo: Pending labs Discussion: Date/Time: 05/18/19 776 This H&P was discussed with [] and [] who agree with the above documentation and plan. Addendum - Attending - Attending Attestation Date/Time: 05/19/19 0141 I personally evaluated the patient and discussed the management with Dr. Bennett at approximately 2000 I agree with the History, Examination, Assessment and Plan documented above with any addition or exceptions noted below. 33 yo at 36.2 wk presented for evaluation following BPP 05/18 at clinic. Know Pre-eclampsia this with scheduled IOL Next week. Reported good movement today. Hx x4. GBS unknown but documented positive in prior . BPP 2 at hospital with intermittent category 2 tracing. SVE /- 2. Discussed R/B/A of proceeding with pLTCS vs IOL for preeclampsia with non- reassuring status including maternal and mortality/morbidity. All questions were answered to patient and her spouse's satisfaction. Elected to proceed with IOL with pitocin with understanding if further signs of distress occurred, we would immediately proceed with pLTCS. Beta methasone given and Pen G started prior to initiation of pitocin.
[2019-05-18 19:04] LABS: #Basophils 0.1 thou/uL (0.0-0.2); #Eosinphils 0.1 thou/uL (0.0-0.7); #Lymphocytes 1.5 thou/uL (1.20-3.40); #Monocytes 0.6 thou/uL (0.11-0.59); #Neutrophils 7.3 thou/uL (1.40-6.50); %Basophils 0.5 % (0.0-1.0); %Eosinophils 0.6 % (0.0-10.0); %Lymphocytes 16.1 % (21.0-51.0); %Monocytes 6.3 % (0.0-10.0); %Neutrophils 76.5 % (42.0-75.0); Hemoglobin 11.8 g/dL (12.0-16.0); Mean Corpuscular HGB CONC 35.2 g/dL (32.0-36.0); Mean Corpuscular Hemoglobin 31.4 pg (27.0-31.0); Mean Corpuscular Volume 89.2 fL (78.0-98.0); Platelet Count 177 thou/uL (130-400); RBC Distribution Width 12.5 % (11.5-14.5); Red Blood Cell (RBC) Count 3.74 mill/uL (4.20-5.40); White Blood Cell (WBC) Count 9.6 thou/uL (4.8-10.8)
[2019-05-18 19:27] LABS: ALT (SGPT) 9 U/L (8-55); AST (SGOT) 12 U/L (5-34); Albumin 3.6 g/dL (3.5-5.0); Alkaline Phosphatase 98 U/L (40-110); Anion Gap 15 mmol/L (10-20); BUN (Urea Nitrogen) 6 mg/dL (7.0-18.7); Bilirubin, Total 0.5 mg/dL (0.2-1.2); Calc. Creatinine Clearance 212 mL/min (70-130); Calcium 9.2 mg/dL (7.8-10.44); Carbon Dioxide 19 mmol/L (22-29); Chloride 106 mmol/L (98-107); Estimated GFR-MDRD Greater than 90; Globulin 2.9 g/dL (2.4-3.5); Glucose 96 mg/dL (70-105); Potassium 3.7 mmol/L (3.5-5.1); Protein, Total 6.5 g/dL (6.0-8.3); Sodium 136 mmol/L (136-145)
[2019-05-18 19:42] LABS: Creatinine, Urine 174.19 mg/dL (47-110)
--- NOTE | 2019-05-18 20:00 | ULT ---
EXAM: NONSTRESS BIOPHYSICAL PROFILE: 05/18/19 TECHNIQUE: Nonstress biophysical profile was performed. FINDINGS: Vertex presentation. Shadowing limits evaluation of the cervix. Anterior placenta. heart tones with a rate of 144 beats per minute. Amniotic fluid index is 17.1 cm. BIOMETRY: BPD 8.70 cm 35 weeks, 1 day Head circumference 32.07 cm 36 weeks, 1 day Abdominal circumference 32.30 cm 36 weeks, 2 days Femur length 7.04 cm 36 weeks, 1 day Average age by sonography is 36 weeks, 0 days. Estimated weight is 2838 grams +/- 420 grams. NONSTRESS BIOPHYSICAL PROFILE: tone - 0 breathing - 0 movement - 0 Amniotic fluid - 2 Total score 2 out of 8. IMPRESSION: Nonstress biophysical profile. BPP score is 2 out of 8. Findings were conveyed to the nurse by the vegetable tester at the time of examination. POS: PPP
--- NOTE | 2019-05-18 20:01 | ULT ---
EXAM: NONSTRESS BIOPHYSICAL PROFILE: 05/18/19 TECHNIQUE: Nonstress biophysical profile was performed. FINDINGS: Vertex presentation. Shadowing limits evaluation of the cervix. Anterior placenta. heart tones with a rate of 144 beats per minute. Amniotic fluid index is 17.1 cm. BIOMETRY: BPD 8.70 cm 35 weeks, 1 day Head circumference 32.07 cm 36 weeks, 1 day Abdominal circumference 32.30 cm 36 weeks, 2 days Femur length 7.04 cm 36 weeks, 1 day Average age by sonography is 36 weeks, 0 days. Estimated weight is 2838 grams +/- 420 grams. NONSTRESS BIOPHYSICAL PROFILE: tone - 0 breathing - 0 movement - 0 Amniotic fluid - 2 Total score 2 out of 8. IMPRESSION: Nonstress biophysical profile. BPP score is 2 out of 8. Findings were conveyed to the nurse by the technology internship at the time of examination. POS: PPP
[2019-05-18] MEDS ORDERED: NS / Oxytocin 40 units/1000ml 1,000 ML IV PRN (20:11)
[2019-05-18] MEDS ORDERED: Lidocaine 1% (PF) 30 ML VIAL SC PRN (20:11)
[2019-05-18] MEDS: Lactated Ringer's 1,000 ML IV SCH (20:12)
[2019-05-18] MEDS ORDERED: Betamet Acet/Betamet Na Ph 30 MG/5 ML VIAL IM SCH (20:15)
[2019-05-18] MEDS ORDERED: NS w/ Oxytocin 10 units 500 ML IV SCH (20:15)
[2019-05-18] MEDS ORDERED: Penicillin G Potassium 5 MILL.UNITS in Sodium Chloride 0.9% 100 ML IVPB SCH (20:15)
--- NOTE | 2019-05-18 20:22 | PDOC.BPN ---
- Brief Progress Note Patient with BPP /, reports having MEJIA not helped with tylenol the past few days. SBP 150s. With h/o of preE, non reassuring BPP x2 (05/18) in clinic discussed giving steroids and keeping for induction of labor Will give PCN ppx since no GBS swab done this and has been GBS positive in prior in 2017 FHT: Cat I-II
[2019-05-18] MEDS: Calcium Carbonate 500 MG ChewTAB PO PRN (20:34)
--- NOTE | 2019-05-18 23:53 | PDOC.LDPN ---
Labor & Delivery Progress Note - Subjective Subjective: comfortable - Objective Vital signs reviewed and normal: yes General: NAD, resting SVE: 50/-2 Dilation: 3 Effacement: 75% Station: -2 FHT: category 1 [place] contractions every: uterine irritability Plan: continue plan of care -: 33 yo at 36.2 weeks here for preE work up, non reassuring APT TYREE 06/13/19 1. sIUP at 36.2 wga -Hx of preE, Cat I -s/p celestone x1 -SVE: /-2, pit at 4, tolerating well -Continue monitoring, recheck in 4 hours 2. PreE -SBP >140 x2, urine Pr/Cr >0.3 (however 0.5 at baseline on last clinic visit) -No severe features at this time -Continue BP monitoring -Hydralazine PRN 3. Hx of GBS+ -GBS swab pending -PCN ppx 4. Grand multip -Will have uterotonics available for delivery 5. Anemia of -Continue PO iron -PNV Dispo: Will try induction of labor with pitocin. Discussed with patient low threshold for Csection if baby was not able to tolerate pitocin. For now will proceed with induction and continuous monitoring. Continue BP monitoring.
[2019-05-19] MEDS: Lactated Ringer's 1,000 ML IV SCH ×4 (00:32→09:31)
[2019-05-19] MEDS ORDERED: Ondansetron PF 4 MG/2 ML Vial IVP PRN ×3 (00:52→16:36)
[2019-05-19] MEDS ORDERED: Promethazine HCl 25 MG/ML VIAL IM PRN ×2 (00:52→04:21)
[2019-05-19] MEDS: Penicillin G 2.5 MILL.units 2.5 MILL.UNITS in Premix Bag 1 BAG IVPB SCH ×5 (01:24→18:36)
[2019-05-19 03:22] LABS: HBSAg Index 0.21 S/CO (0-0.99); Hep B Surf Ag Non-Reactive S/CO (NonReactive)
[2019-05-19] MEDS ORDERED: Fentanyl 4 mcg/Bup 0.1% Cadd 100 ML ONE (03:24)
[2019-05-19 03:46] LABS: Syphilis Antibody Nonreactive (Nonreactive); Syphilis Antibody Index 0.03 S/CO (<1.00 Non-Reactive)
[2019-05-19] MEDS ORDERED: Acetaminophen 325 MG TAB PO PRN (04:21)
[2019-05-19] MEDS ORDERED: EPHEDRINE 25 MG/5 ML SYRINGE SLOW IVP PRN (04:21)
[2019-05-19] MEDS ORDERED: diphenhydrAMINE 50 MG/ML VIAL IVP PRN (04:21)
[2019-05-19] MEDS ORDERED: Lactated Ringer's 500 ML IV PRN (04:21)
[2019-05-19] MEDS ORDERED: Naloxone HCl 0.4 mg/ml Vial IVP PRN ×2 (04:21)
--- NOTE | 2019-05-19 04:23 | PDOC.LDPN ---
Labor & Delivery Progress Note - Subjective Subjective: comfortable - Objective Vital signs reviewed and normal: yes General: NAD, resting Dilation: 4 cm Effacement: 75% Station: -2 [place] contractions every: q3-5 mins AROM: clear fluid IUPC placed: yes FSE placed: yes - Assessment (1) History of pre-eclampsia Code(s): Z87.59 - PERSONAL HISTORY OF COMP OF PREG, CHLDBRTH AND THE PUERP Current Visit: No Status: Acute (2) Intrauterine Code(s): Z34.90 - ENCNTR FOR SUPRVSN OF NORMAL , UNSP, UNSP TRIMESTER Current Visit: No Status: Acute (3) Pre-eclampsia Code(s): O14.90 - UNSPECIFIED PRE-ECLAMPSIA, UNSPECIFIED TRIMESTER Current Visit: No Status: Acute Qualifiers: Comment: Plan: continue plan of care -: 33 yo at 36.2 weeks here for preE work up, non reassuring APT TYREE 06/13/19 1. sIUP at 36.2 wga -Hx of preE, Cat I -s/p celestone x1 -SVE: /-2, pit at 6, tolerating well - placed IUPC, FSE; AROM clear fluid -Continue monitoring, recheck in 4 hours 2. PreE -SBP >140 x2, urine Pr/Cr >0.3 (however 0.5 at baseline on last clinic visit) -No severe features at this time -Continue BP monitoring -Hydralazine PRN 3. Hx of GBS+ -GBS swab pending -PCN ppx 4. Grand multip -Will have uterotonics available for delivery 5. Anemia of -Continue PO iron -PNV Dispo: Will try induction of labor with pitocin. Discussed with patient low threshold for Csection if baby was not able to tolerate pitocin. For now will proceed with induction and continuous monitoring. Continue BP monitoring.
[2019-05-19] MEDS ORDERED: Communication Order-Pharmacy FS SCH (04:30)
[2019-05-19] MEDS ORDERED: Fentanyl 4 mcg/Bupivacaine 0.1% Cassette 100 ML EPIDURAL SCH (04:30)
[2019-05-19] MEDS: Calcium Carbonate 500 MG ChewTAB PO PRN (04:44)
--- NOTE | 2019-05-19 06:27 | PDOC.LDPN ---
Labor & Delivery Progress Note - Subjective Subjective: other (Pt is feels chest discomfort, tachycardia) - Objective Vital signs reviewed and normal: yes Abnormal vital signs: HR: 160's; One SBP 160 Dilation: 80/-1 FHT: category 1 [place] contractions every: q2-3mins IUPC placed: yes FSE placed: yes - Assessment (1) History of pre-eclampsia Code(s): Z87.59 - PERSONAL HISTORY OF COMP OF PREG, CHLDBRTH AND THE PUERP Current Visit: No Status: Acute (2) Intrauterine Code(s): Z34.90 - ENCNTR FOR SUPRVSN OF NORMAL , UNSP, UNSP TRIMESTER Current Visit: No Status: Acute (3) Pre-eclampsia Code(s): O14.90 - UNSPECIFIED PRE-ECLAMPSIA, UNSPECIFIED TRIMESTER Current Visit: No Status: Acute Qualifiers: Comment: (4) Tachycardia Code(s): R00.0 - TACHYCARDIA, UNSPECIFIED Current Visit: Yes Status: Acute -: 33 yo at 36.2 weeks here for preE work up, non reassuring APT TYREE 06/13/19 # Maternal Tachycardia Afebrile. Rate 160's. Hx of anxiety. Feeling pressure in chest. Reassuring FHT' s. - stat EKG # sIUP at 36.2 wga -Hx of preE, Cat I -s/p celestone x1 -SVE: 580/-1 at 0600 - placed IUPC, FSE; AROM clear fluid at 0430 -Continue monitoring, recheck in 4 hours # PreE -SBP >140 x2, urine Pr/Cr >0.3 (however 0.5 at baseline on last clinic visit) -No severe features at this time -Continue BP monitoring -Hydralazine PRN # Hx of GBS+ -GBS swab pending -PCN ppx # Grand multip -Will have uterotonics available for delivery # Anemia of -Continue PO iron -PNV Dispo: Will continue induction. Pending EKG for maternal tachycardia.
[2019-05-19] MEDS ORDERED: Labetalol HCl 100 MG/20 ML VIAL SLOW IVP PRN (06:32)
[2019-05-19] MEDS ORDERED: Labetalol HCl 100 MG/20 ML VIAL ONE (06:33)
--- NOTE | 2019-05-19 06:36 | PDOC.BPN ---
- Brief Progress Note Alerted of maternal tachycardia at 0545, instructed to give 500ml bolus contacted at 0600 rate up to 150s Assessed patient at bedside Cat 1 strip, SVE 5/80/-1 Patient speaking in complete sentences, regular rhythm, no murmurs afrebrile, RR 18, o2 sat 98% on RA Complaining of heaviness with breathing, feels nervous Anesthesia at bedside, stopped epidural ordered and called for stat EKG at 0600, EKG not completed until 0625 Sinus tachycardia Will give 10mg labetalol IV Ordered: trop, cbc, cmp, bnp, pt/inr
[2019-05-19 06:56] LABS: Hemoglobin 11.8 g/dL (12.0-16.0); Mean Corpuscular HGB CONC 35.1 g/dL (32.0-36.0); Mean Corpuscular Hemoglobin 31.5 pg (27.0-31.0); Mean Corpuscular Volume 89.8 fL (78.0-98.0); Mean Platelet Volume 7.9 fL (7.4-10.4); Platelet Count 185 thou/uL (130-400); RBC Distribution Width 12.5 % (11.5-14.5); Red Blood Cell (RBC) Count 3.73 mill/uL (4.20-5.40); White Blood Cell (WBC) Count 12.8 thou/uL (4.8-10.8)
[2019-05-19 07:05] LABS: INR-International Normal Ratio 0.9; Prothrombin Time 12.2 SEC (12.0-14.7)
[2019-05-19 07:24] LABS: ALT (SGPT) 8 U/L (8-55); AST (SGOT) 10 U/L (5-34); Albumin 3.6 g/dL (3.5-5.0); Alkaline Phosphatase 104 U/L (40-110); Anion Gap 17 mmol/L (10-20); BUN (Urea Nitrogen) 4 mg/dL (7.0-18.7); Bilirubin, Total 0.9 mg/dL (0.2-1.2); Calc. Creatinine Clearance 212 mL/min (70-130); Calcium 9.4 mg/dL (7.8-10.44); Carbon Dioxide 16 mmol/L (22-29); Chloride 106 mmol/L (98-107); Estimated GFR-MDRD Greater than 90; Globulin 2.9 g/dL (2.4-3.5); Glucose 148 mg/dL (70-105); Potassium 3.9 mmol/L (3.5-5.1); Protein, Total 6.5 g/dL (6.0-8.3); Sodium 135 mmol/L (136-145)
[2019-05-19 09:07] LABS: Phosphorus 3.2 mg/dL (2.3-4.7)
[2019-05-19 09:09] LABS: Magnesium 1.3 mg/dL (1.6-2.6)
[2019-05-19 10:32] LABS: Actual Bicarbonate (HCO3a) 19.8 mEq/L (22-28); Actual Bicarbonate (HCO3v) 24 mEq/L (22-28); Analyzer IN Cardio ER; Base Excess (BEa) -4.4 mEq/L (-2.0 to +3.0); pH (Cord, venous) 7.28 (7.32-7.43)
[2019-05-19] MEDS ORDERED: Magnesium Sulfate 2 GM in Sodium Chloride 0.9% 100 ML IVPB SCH (14:30)
[2019-05-19] MEDS ORDERED: Milk Of Magnesia 30 ML UDCUP PO PRN (16:36)
[2019-05-19] MEDS ORDERED: NS / Oxytocin 40 units/1000ml 1,000 ML IV SCH (16:36)
[2019-05-19] MEDS ORDERED: Lanolin Ointment 7 GM TUBE TOP PRN (16:36)
[2019-05-19] MEDS ORDERED: Adacel (T-DAP) 0.5 ML SYRINGE IM ONE (16:36)
[2019-05-19] MEDS ORDERED: hydrALAZINE 20 MG/ML VIAL SLOW IVP PRN (16:36)
[2019-05-19] MEDS ORDERED: diphenhydrAMINE 25 MG CAP PO PRN (16:36)
[2019-05-19] MEDS ORDERED: Benzocaine-Menthol 82.5 ML CAN TOP PRN (16:36)
[2019-05-19] MEDS ORDERED: Bisacodyl 10 MG SUPP PR PRN (16:36)
[2019-05-19] MEDS ORDERED: Preparation H Ointment 28 GM TUBE PR PRN (16:36)
[2019-05-19] MEDS: Ibuprofen 800 MG TAB PO SCH ×2 (17:39→22:40)
[2019-05-19] MEDS: Ferrous Sulfate 325 MG TAB PO SCH (18:35)
[2019-05-19] MEDS ORDERED: Magnesium Chloride 64 MG TAB PO SCH (19:30)
[2019-05-19] MEDS: Docusate Calcium (SURFAK) 240 MG CAP PO SCH (22:41)
[2019-05-20] MEDS: Ibuprofen 800 MG TAB PO SCH ×3 (05:50→21:11)
--- NOTE | 2019-05-20 07:18 | PDOC.PP ---
Post Progress Note Post Day #: 1 Subjective: Patient doing well this AM. No significant overnight events. No further episodes of tachycardia with shortness of breath. Patient tolerating PO, ambulating, and passing flatus. Lochia less than period. PO intake tolerated: yes Flatus: yes Ambulation: yes Vital Signs (12 hours) Temp Pulse Resp BP Pulse Ox 05/20/19 05:46 97.8 F 78 12 121/75 98 05/20/19 00:36 98.3 F 81 12 115/61 98 05/19/19 19:39 98.1 F 89 16 120/71 100 Weight Weight 93.894 kg - Physical Examination General: NAD Cardiovascular: RRR Respiratory: non-labored breathing Abdominal: + bowel sounds, lochia (minimal), no distention, appropriately TTP Fundus firm & at: Below umbilicus Skin: no rash Neurological: no gross focal deficits Psychiatric: A&Ox3, normal affect Result Diagrams: 05/19/19 06:47 05/19/19 06:47 Additional Labs: Post Labs Blood Type B POSITIVE 05/19/19 02:12 Hep Bs Antigen Non-Reactive S/CO (NonReactive) 05/19/19 02:12 (1) (spontaneous vaginal delivery) Code(s): O80 - ENCOUNTER FOR FULL-TERM UNCOMPLICATED DELIVERY Status: Acute (2) delivery after induction of labor Code(s): O60.10X0 - LABOR W DELIVERY, UNSP TRIMESTER, UNSP Status: Acute (3) Pre-eclampsia Code(s): O14.90 - UNSPECIFIED PRE-ECLAMPSIA, UNSPECIFIED TRIMESTER Status: Acute Qualifiers: Comment: - Assessment/Plan 33 year old at 36.3 wk by LMP/9.2 wk sono delivered PAGA F infant at 9: 59 AM on 05/19/2019 via 1. Routine PP care - PP day #1 s/p - Meeting PP milestones - Rh pos, rubella immune - Lochia minimal - GBS unknown, adequately treated with penicillin x4 2. Pre-Eclampsia - BP's appear well controlled in PP period, review of [facility] since transfer to shows all BP's WNL (<140/90) - Patient without symptoms - Labs on admission reassuring (CBC, CMP) 3. IOL for non-reassuring testing - BPP 05/18 --> 2/8, FHT's initially with tachycardia, then minimal variability -- > strip did recover prior to pitocin augmentation - IOL with pitocin agumentation s/p 4. GBS status unknown - Prelim GBS negative, awaiting final results - 48 hour obs - Adequately treated x4 Dispo: with GBS status unknown, plan for d/c home at 48 hours. Addendum - Attending - Attending Attestation Date/Time: 05/20/19 0288 I personally evaluated the patient and discussed the management with Dr. Kennedy I agree with the History, Examination, Assessment and Plan documented above with any addition or exceptions noted below - Patient without complaints. Afebrile VSS. A/P: 1) PPD#1 s/p - Continue rutine care.
[2019-05-20] MEDS ORDERED: Prenatal Vitamin 1 TAB PO SCH (09:00)
[2019-05-20] MEDS: Docusate Calcium (SURFAK) 240 MG CAP PO SCH ×2 (09:05→21:11)
[2019-05-20] MEDS: Ferrous Sulfate 325 MG TAB PO SCH ×2 (09:05→18:40)
[2019-05-20] MEDS ORDERED: Calcium Carbonate 500 MG ChewTAB PO PRN (09:25)
[2019-05-20] MEDS ORDERED: Calcium Carbonate 500 MG ChewTAB PO SCH (09:30)
--- NOTE | 2019-05-20 13:00 | OP ---
DATE OF PROCEDURE: 05/19/2019 RESIDENT SURGEON: Dr. Toshia Kennedy. ATTENDING SURGEON: Sumaya Franco MD PREOPERATIVE DIAGNOSES: 1. intrauterine at 36 and 3 weeks gestation. 2. Non-reassuring testing with a BPP of 4/8 and repeat of 2/8. 3. Pre-eclampsia without severe features. 4. GBS status unknown. POSTOPERATIVE DIAGNOSES: 1. intrauterine , delivered. 2. Non-reassuring testing with a BPP of 4/8 and repeat of 2/8. 3. Pre-eclampsia without severe features. 4. GBS unknown, adequately treated x4 with penicillin. 5. Spontaneous vaginal delivery. PROCEDURE PERFORMED: Spontaneous vaginal delivery. INDICATIONS FOR PROCEDURE: This is a 33-year-old, G5, P4-0-0-4, who presented at 36 and 2 weeks gestation with non-reassuring testing. She had a BPP done in clinic with tachycardia noted as well as the BPP of 4/8. BPP was repeated after admission to the hospital and was noted to be 2/8. Her cervix was favorable at 3, 50, -1. A decision was made to proceed with induction of labor utilizing Pitocin essentially as a stress test to see if baby would tolerate labor. PROCEDURE IN DETAIL: After risks, benefits, and alternatives were discussed with the patient, she gave informed consent to proceed with induction of labor utilizing Pitocin as augmentation. Given the non-reassuring testing, the option for section was also discussed with the patient. We did explain that if the fetus did not tolerate the Pitocin and had non-reassuring heart tones, that we would have to proceed with a section as discussed. The patient was agreeable with the trial of labor with Pitocin augmentation. Over the course of the labor process, the patient initially did well. heart tones actually did improve from minimal variability and strip appeared reassuring. However, at approximately 5:30 a.m. on 05/19/2019, the patient was noted to have a heart rate in the 170s. This was noted approximately 30 minutes or so after the patient did receive her epidural. Thus, the concern was that the patient had a high epidural that maybe contributed to the symptoms in addition to some underlying anxiety that maybe exacerbated the problem. EKG was performed which did show sinus tachycardia. The patient was initially short of breath, but that improved once epidural was turned off. Per Anesthesia's recommendations, epidural was turned off to allow time for it to wear off and for symptoms to resolve. However, during this time, the patient started to experience intense contractions and requested that the epidural be turned back on. Anesthesia did come back and evaluate on two separate occasions to assist with pain control. Eventually, pain control was achieved and the patient's cervix was rechecked and she was noted to be complete and +2. We proceeded with the delivery as discussed. A average for gestational age viable female was delivered over an intact perineum in the occipitoanterior position. There was one loose nuchal x1, which was reduced prior to delivery of the anterior shoulder. Anterior shoulder was delivered and with the remainder of the body to follow. Delayed cord clamping was done after about 1 minute. The cord was clamped and cut and the cord segment was collected for cord gas. Cord blood was then collected for blood type. Infant was taken over to the warmer to be evaluated by Gerhard given gestation. The placenta was then delivered intact with three-vessel cord noted and the placenta was sent for pathology given the patient's non-reassuring testing and history of pre-eclampsia during this current . Of note, patient did throw one severe range pressures during the course of her labor, but repeat 50 minutes later was below threshold for starting magnesium. She did not require any magnesium during the labor process. The cervix and vagina were inspected and found to be free of lacerations. The uterus was firm. There was not noted to be significant amount of bleeding after delivery of the placenta. Mother did very well and went to for routine recovery/care. Infant went to nursery for routine recovery/care. QBL: 46 mL. COMPLICATIONS: None. FINDINGS: A average for gestational age viable female with Apgars of 7 and 9 and weight of 2.67 kg. Intact placenta with three-vessel cord noted and sent for pathology. Cord gas sent for analysis. Cord blood sent for blood type. Job ID: [id number]
[2019-05-21] MEDS: Ibuprofen 800 MG TAB PO SCH (05:46)
[2019-05-21] MEDS: Ferrous Sulfate 325 MG TAB PO SCH (07:55)
[2019-05-21 08:03] VITALS: BP 121/78; TEMP 98.3
--- NOTE | 2019-05-21 11:09 | PDOC.PP ---
Post Progress Note Post Day #: 2 Subjective: Patient doing well this AM. Patient was upset this morning, because she was questioned at 1 AM this morning about her HIV status. There is some misdocumentation somewhere outside of the physician notes regarding her HIV status. This had been addressed with nursery on several occasions prior to last night. Patient is in fact, NOT, HIV positive. No physician documentation states that she is, and labs in patient's chart are not documented anywhere as positive. Patient was upset this morning regarding the events that transpired last night.. I have personally spoken with nursery and Kaia regarding these events and it is being addressed. Patient states lochia did warp picker last night. She denies cramping. Lochia still similar to that of a period. PO intake tolerated: yes Flatus: yes Ambulation: yes Vital Signs (12 hours) Temp Pulse Resp BP Pulse Ox 05/21/19 08:02 98.3 F 77 20 121/78 98 Weight Weight 93.894 kg - Physical Examination General: NAD Cardiovascular: RRR Respiratory: non-labored breathing Abdominal: + bowel sounds, lochia (minimal), no distention, appropriately TTP Fundus firm & at: below umbilicus Skin: no rash Neurological: no gross focal deficits Psychiatric: A&Ox3, normal affect Result Diagrams: 05/19/19 06:47 05/19/19 06:47 Additional Labs: Post Labs Blood Type B POSITIVE 05/19/19 02:12 Hep Bs Antigen Non-Reactive S/CO (NonReactive) 05/19/19 02:12 (1) (spontaneous vaginal delivery) Code(s): O80 - ENCOUNTER FOR FULL-TERM UNCOMPLICATED DELIVERY Status: Acute (2) delivery after induction of labor Code(s): O60.10X0 - LABOR W DELIVERY, UNSP TRIMESTER, UNSP Status: Acute (3) Pre-eclampsia Code(s): O14.90 - UNSPECIFIED PRE-ECLAMPSIA, UNSPECIFIED TRIMESTER Status: Acute Qualifiers: Comment: - Assessment/Plan 33 year old at 36.3 wk by LMP/9.2 wk sono delivered PAGA F infant at 9: 59 AM on 05/19/2019 via 1. Routine PP care - PP day #2 s/p - Meeting PP milestones - Rh pos, rubella immune - Lochia minimal - GBS came back positive, adequately treated with penicillin x4 2. Pre-Eclampsia - BP's appear well controlled in PP period, review of [facility] since transfer to shows all BP's WNL (<140/90) - Patient without symptoms - Labs on admission reassuring (CBC, CMP) 3. IOL for non-reassuring testing - BPP 05/18 --> 2/, FHT's initially with tachycardia, then minimal variability -- > strip did recover prior to pitocin augmentation - IOL with pitocin agumentation s/p 4. GBS positive - GBS swab came back positive - 48 hour obs - Adequately treated x4 Dispo: D/c home today. Addendum - Attending - Attending Attestation Date/Time: 05/21/19 1140 I personally evaluated the patient and discussed the management with Dr. Kennedy I agree with the History, Examination, Assessment and Plan documented above with any addition or exceptions noted below - Patient without complaints. Afebrile VSS. A/P: 1) PPD#2 s/p - doing well. Plan to d/c home today.
== END 2019-05-21 10:30 | disposition home or self-care (01) | DRG 807 ==
LOC: L&D/OP 17:57 → L&D 20:21 → 3SW 05-19 18:30
PROVIDERS: ADMIT Family Medicine; ATTEND Family Medicine
PROC: 10E0XZZ Delivery of Products of Conception, External Approach (ICD-10-PCS; principal; 2019-05-21)
PROC: 3E033VJ Introduction of Other Hormone into Peripheral Vein, Percutaneous Approach (ICD-10-PCS; 2019-05-21)
DX: O76 Abnormality in fetal heart rate and rhythm complicating labor and delivery (principal); Z37.0 Single live birth; O99.02 Anemia complicating childbirth; O14.94 Unspecified pre-eclampsia, complicating childbirth; O99.824 Streptococcus B carrier state complicating childbirth; O69.81X0 Labor and delivery complicated by cord around neck, without compression, not applicable or unspecified; D64.9 Anemia, unspecified; Z3A.36 36 weeks gestation of pregnancy
CPT/HCPCS: 36415; 51701; 51702; 76816; 76819; 80053; 82570; 82805; 83735; 83880; 84100; 84156; 84484; 84550; 85025; 85027; 85610; 86780; 86850; 86900; 86901; 87077; 87081; 87340; 93005; 93010; 99285; J0702; J2405; J2540; J2590; J3475; J3490; S0020

== ENCOUNTER 2019-11-26 11:28 | Outpatient (CLI) | payer OTHER ==
--- NOTE | 2019-11-29 14:36 | EEG ---
DATE OF SERVICE: DESCRIPTION OF THE RECORD: Waking background is a [id number] amplitude 10 hertz alpha frequency. The patient remained awake throughout the study. Hyperventilation and photic stimulation were unremarkable. No epileptiform features were seen. IMPRESSION: This is a normal awake EEG. Job ID: [id number]
== END 2019-11-26 11:29 | disposition home or self-care (01) ==
LOC: EEG 11:28
PROVIDERS: ATTEND Psychiatry & Neurology Neurology
DX: R51.9 Headache, unspecified (principal)
CPT/HCPCS: 95816

== ENCOUNTER 2020-07-06 15:59 | Emergency (ER) | payer OTHER ==
[2020-07-06 16:49] LABS: #Basophils 0.1 thou/uL (0.0-0.2); #Eosinphils 0.1 thou/uL (0.0-0.7); #Lymphocytes 1.9 thou/uL (1.20-3.40); #Monocytes 0.6 thou/uL (0.11-0.59); #Neutrophils 6.8 thou/uL (1.40-6.50); %Basophils 0.7 % (0.0-1.0); %Eosinophils 0.9 % (0.0-10.0); %Lymphocytes 20.4 % (21.0-51.0); %Monocytes 6.5 % (0.0-10.0); %Neutrophils 71.5 % (42.0-75.0); Hemoglobin 14.2 g/dL (12.0-16.0); Mean Corpuscular HGB CONC 35.7 g/dL (32.0-36.0); Mean Corpuscular Hemoglobin 31.1 pg (27.0-31.0); Mean Corpuscular Volume 87.2 fL (78.0-98.0); Mean Platelet Volume 8.2 fL (7.4-10.4); Platelet Count 249 thou/uL (130-400); RBC Distribution Width 11.6 % (11.5-14.5); Red Blood Cell (RBC) Count 4.57 mill/uL (4.20-5.40); White Blood Cell (WBC) Count 9.5 thou/uL (4.8-10.8)
[2020-07-06 17:19] LABS: ALT (SGPT) 32 U/L (8-55); AST (SGOT) 19 U/L (5-34); Albumin 4.6 g/dL (3.5-5.0); Alkaline Phosphatase 104 U/L (40-110); Anion Gap 13 mmol/L (10-20); BUN (Urea Nitrogen) 10 mg/dL (7.0-18.7); Bilirubin, Total 0.6 mg/dL (0.2-1.2); Calc. Creatinine Clearance 0 mL/min (70-130); Calcium 9.8 mg/dL (7.8-10.44); Carbon Dioxide 25 mmol/L (22-29); Chloride 106 mmol/L (98-107); Globulin 2.7 g/dL (2.4-3.5); Glucose 114 mg/dL (70-105); Potassium 4.3 mmol/L (3.5-5.1); Protein, Total 7.3 g/dL (6.0-8.3); Sodium 140 mmol/L (136-145)
== END 2020-07-06 19:35 | disposition home or self-care (01) ==
LOC: ERS 15:59
DX: U07.1 COVID-19 (principal)
CPT/HCPCS: 36415; 71045; 80053; 83735; 84484; 85025; 85379; 93005

== ENCOUNTER 2020-07-31 22:33 | Emergency (ER) | payer OTHER | END 2020-08-01 01:44 | disposition home or self-care (01) | LOC: ERS 22:33 | DX: M94.0 Chondrocostal junction syndrome [Tietze] (principal) | CPT/HCPCS: 71045; 93005 ==

== ENCOUNTER 2020-12-28 10:32 | Emergency (ER) | payer OTHER ==
[2020-12-28 12:01] LABS: #Lymphocytes 1.4 thou/uL (1.20-3.40); #Monocytes 0.4 thou/uL (0.11-0.59); %Basophils 0.6 % (0.0-1.0); %Eosinophils 0.6 % (0.0-10.0); %Lymphocytes 20.2 % (21.0-51.0); %Monocytes 5.8 % (0.0-10.0); %Neutrophils 72.8 % (42.0-75.0); Hemoglobin 13.9 g/dL (12.0-16.0); Mean Corpuscular HGB CONC 35.2 g/dL (32.0-36.0); Mean Corpuscular Hemoglobin 31.3 pg (27.0-31.0); Mean Corpuscular Volume 88.9 fL (78.0-98.0); Mean Platelet Volume 7.3 fL (7.4-10.4); Platelet Count 237 thou/uL (130-400); RBC Distribution Width 10.9 % (11.5-14.5); Red Blood Cell (RBC) Count 4.44 mill/uL (4.20-5.40); White Blood Cell (WBC) Count 6.9 thou/uL (4.8-10.8)
[2020-12-28 12:07] LABS: ALT (SGPT) 39 U/L (8-55); AST (SGOT) 36 U/L (5-34); Albumin 4.6 g/dL (3.5-5.0); Alkaline Phosphatase 87 U/L (40-110); Anion Gap 13 mmol/L (10-20); BUN (Urea Nitrogen) 12 mg/dL (7.0-18.7); Bilirubin, Total 0.6 mg/dL (0.2-1.2); Calc. Creatinine Clearance 0 mL/min (70-130); Calcium 10.2 mg/dL (7.8-10.44); Carbon Dioxide 24 mmol/L (22-29); Chloride 105 mmol/L (98-107); Globulin 3.7 g/dL (2.4-3.5); Glucose 91 mg/dL (70-105); Potassium 4.3 mmol/L (3.5-5.1); Protein, Total 8.3 g/dL (6.0-8.3); Sodium 138 mmol/L (136-145)
[2020-12-28] MEDS ORDERED: Lidocaine Viscous Sol 2% 15 ml UD Cup ONE (13:02)
[2020-12-28] MEDS ORDERED: Mag-Al 1200 mg/1200 mg/30 ML UDCUP ONE (13:02)
== END 2020-12-28 14:51 | disposition home or self-care (01) ==
LOC: ERS 10:32
DX: R07.89 Other chest pain (principal)
CPT/HCPCS: 36415; 71045; 80053; 84484; 85025; 85379; 93005

== ENCOUNTER 2021-01-14 21:43 | Emergency (ER) | payer OTHER ==
[2021-01-14 22:42] LABS: #Basophils 0.1 thou/uL (0.0-0.2); #Eosinphils 0.1 thou/uL (0.0-0.7); #Lymphocytes 2.4 thou/uL (1.20-3.40); #Monocytes 0.7 thou/uL (0.11-0.59); #Neutrophils 6.7 thou/uL (1.40-6.50); %Basophils 0.6 % (0.0-1.0); %Eosinophils 0.8 % (0.0-10.0); %Monocytes 7.1 % (0.0-10.0); %Neutrophils 67.5 % (42.0-75.0); Hemoglobin 14.4 g/dL (12.0-16.0); Mean Corpuscular HGB CONC 34.6 g/dL (32.0-36.0); Mean Corpuscular Hemoglobin 30.9 pg (27.0-31.0); Mean Corpuscular Volume 89.3 fL (78.0-98.0); Mean Platelet Volume 7.6 fL (7.4-10.4); Platelet Count 213 thou/uL (130-400); Red Blood Cell (RBC) Count 4.67 mill/uL (4.20-5.40)
[2021-01-14 23:05] LABS: ALT (SGPT) 26 U/L (8-55); AST (SGOT) 25 U/L (5-34); Albumin 4.5 g/dL (3.5-5.0); Alkaline Phosphatase 67 U/L (40-110); Anion Gap 17 mmol/L (10-20); BUN (Urea Nitrogen) 13 mg/dL (7.0-18.7); Bilirubin, Total 0.7 mg/dL (0.2-1.2); Calc. Creatinine Clearance 0 mL/min (70-130); Calcium 9.5 mg/dL (7.8-10.44); Carbon Dioxide 18 mmol/L (22-29); Chloride 109 mmol/L (98-107); Globulin 2.9 g/dL (2.4-3.5); Glucose 82 mg/dL (70-105); Lipase 42 U/L (8-78); Potassium 4.3 mmol/L (3.5-5.1); Protein, Total 7.4 g/dL (6.0-8.3); Sodium 140 mmol/L (136-145)
[2021-01-15] MEDS ORDERED: Sucralfate 1 GM/10 ML UDCUP ONE (01:17)
[2021-01-15 01:34] LABS: Bacteria/HPF None Seen HPF (None Seen); Bilirubin Negative (Negative); Blood, Urine Negative (Negative); Clarity Turbid (Clear); Glucose, Urine (Dipstick) Normal (Negative); Ketone, Urine 20 mg/dL (Negative); Leukocyte 500 Leu/uL (Negative); Nitrite Negative (Negative); Protein, Urine (Dipstick) 20 mg/dL (Neg-Trace); RBC/HPF 0-3 HPF (0-3); Specific Gravity, Urine 1.029 (1.002-1.036); Urobilinogen Normal mg/dL (Less than 2); pH, Urine 6.5 (5.0-9.0)
[2021-01-15 01:35] LABS: Pregnancy Test - Urine (BHCG) Negative (Negative); Pregu Control Background? CLEAR/WHITE (CLR/WHITE); Pregu Control Bar Appear? YES (CONTROL BAR); Specific Gravity 1.029 (1.002-1.036)
== END 2021-01-15 02:05 | disposition home or self-care (01) ==
LOC: ERS 21:43
DX: R10.13 Epigastric pain (principal); R07.89 Other chest pain; I10 Essential (primary) hypertension
CPT/HCPCS: 36415; 80053; 81003; 81015; 81025; 83690; 85025; 93005

== ENCOUNTER 2023-02-13 12:02 | Outpatient (CLI) | payer OTHER | END 2023-02-13 12:03 | disposition home or self-care (01) | LOC: SCSMRI 12:02 | PROVIDERS: ATTEND Psychiatry & Neurology Neurology | DX: G37.9 Demyelinating disease of central nervous system, unspecified (principal) | CPT/HCPCS: 70553; 72156; 72157 ==